=== PATIENT | female | born 1955 | race Caucasian/White ===

== ENCOUNTER 2019-04-21 19:16 | Inpatient (IN) | payer OTHER ==
[~2019-04-21 19:16] MED LIST: Calcium Chloride 1 GM/10 ML Abboject SYRINGE ONE; Dexamethasone 20 MG/5 ML VIAL ONE; Glycopyrrolate 0.2 MG/ML 5 ML SYRINGE ONE; Lidocaine 1% PF 5 ML VIAL ONE; Ondansetron PF 4 MG/2 ML Vial ONE; PHENYLEPHRINE-NS 100 MCG/ML 10 ML SYRINGE ONE; PROPOFOL 200 MG/20 ML VIAL ONE; Rocuronium Bromide 10 MG/ML (10ML VIAL) ONE; Succinylcholine Chloride 20 MG/ML 10 ml SYRINGE FS ONE; ePHEDrine/0.9% NaCl/PF SYRINGE 50 mg/10 ml ONE
[2019-04-21] MEDS ORDERED: Morphine 4 MG/ML VIAL ONE (19:57)
[2019-04-21] MEDS ORDERED: Midazolam HCl 2 mg/2 ml Vial ONE (20:04)
[2019-04-21] MEDS ORDERED: Fentanyl 100 MCG/2 ML VIAL ONE (20:04)
[2019-04-21] MEDS ORDERED: Lidocaine 1% w/Epinephrine 1:100K 20 ML VIAL ONE (20:04)
[2019-04-21] MEDS ORDERED: Bupivacaine 0.25% HCL 30 ML VIAL ONE (20:04)
[2019-04-21] MEDS ORDERED: cefOXitin Sodium/Dextrose,Iso 2 GM in Premix Bag 1 BAG IVPB SCH (20:30)
[2019-04-21] MEDS ORDERED: ceFOXitin 2 GM/50 ML Duplex BAG ONE (20:35)
[2019-04-21] MEDS ORDERED: Sodium Chloride 0.9% 20 ML ONE (20:42)
--- NOTE | 2019-04-21 20:55 | HP ---
HISTORY OF PRESENT ILLNESS: Ms. Brasher is a 63-year-old woman with sudden onset of abdominal pain around 10:30 or 11 o'clock this morning. The pain got much worse as time went by and she had multiple episodes of nonbloody nausea and vomiting, so she came to a freestanding emergency room. Workup there showed a slightly elevated white count and a slightly elevated lactate. A CT scan was done, which showed swelling of the mesentery and thickening of the large loop of small bowel with stranding in the mesentery concerning for volvulus or internal hernia. The patient states that her pain is continuing to worsen with time, nothing that has been done has relieved her pain. She has an NG tube in place, but has not had much output and has not had any relief of her pain after NG tube placement. She is not passing gas or having bowel movements. No fevers or chills. The patient states that the pain is across the center of her abdomen and very severe. She is writhing around in the bed, trying to get comfortable, but unable to get comfortable. PAST MEDICAL HISTORY: Diabetes and hyperlipidemia. PAST SURGICAL HISTORY: Hysterectomy. FAMILY HISTORY: Noncontributory. SOCIAL HISTORY: She is nonsmoker and drinks alcohol rarely and not to excess. Does not use any illicit drugs. ALLERGIES: SHE DOES NOT HAVE ANY KNOWN DRUG ALLERGIES. OUTPATIENT MEDICATIONS: Include; 1. Atorvastatin. 2. Jardiance. 3. Metformin. REVIEW OF SYSTEMS: Ten system review of systems is negative except per HPI. PHYSICAL EXAMINATION: VITAL SIGNS: The patient is in obvious discomfort. She is not flushed or toxic in appearance. She is alert and oriented, although distracted by pain. She is not jaundiced or icteric. HEENT: Unremarkable. NECK: Supple without lymphadenopathy or thyroid nodules. HEART: Regular in its rate and rhythm without murmurs, rubs, or gallops. LUNGS: Clear to auscultation bilaterally. ABDOMEN: Soft and nondistended. She is tender to palpation in the right lateral abdomen without rigidity, rebound, or guarding. She has a healed lower midline incision without palpable hernias. No palpable masses. EXTREMITIES: Warm and well perfused without edema. NEURO: No focal deficits. LABORATORY DATA: White count is elevated at 13, hematocrit is 48, platelets 316. Electrolytes are unremarkable. Glucose is slightly elevated at 210. LFTs and amylase are normal. Lactate is slightly high at 2.16. She has a base excess of 2. DIAGNOSTIC DATA: CT images are reviewed with our radiologist. He states that the bowel is thickened and hypoperfused concerning for ischemia. There is a lot of stranding in the mesentery. The bowel loop appears to be at mid jejunum, and the proximal and distal bowel appear well perfused and relatively decompressed. ASSESSMENT AND PLAN: Likely volvulus or internal hernia causing bowel ischemia. I recommended emergency surgery for detorsion or lysis of adhesions. Small bowel resection may be necessary depending on the viability of the bowel. Unfortunately, it took 2 hours for the patient to be transferred to our hospital, but I have posted her emergently for the operating room. 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 The patient also has an incidental finding of 3.5 right adnexal cyst. She is unsure how long this has been there. She has not had previous imaging. She has not had periods since her hysterectomy as a young woman, this is a nonemergent problem and her bowel issues need to be addressed first, but if the appearance of the cyst is concerning, I may do an intraoperative consult of the OB hospitalist. The patient is agreeable to proceed with oophorectomy if they feel this is indicated or cystectomy. Job ID: [id number]
[2019-04-21] MEDS ORDERED: Morphine 4 MG/ML VIAL SLOW IVP SCH (21:00)
[2019-04-21] MEDS ORDERED: Albumin 5% 250 ML ONE (21:21)
[2019-04-21] MEDS ORDERED: Promethazine HCl 25 MG/ML VIAL IM PRN (22:41)
[2019-04-21] MEDS ORDERED: Ondansetron HCl/PF 4 MG/2 ML Vial IVP PRN (22:41)
[2019-04-21] MEDS ORDERED: Promethazine HCl 25 MG/ML VIAL SLOW IVP PRN (22:41)
[2019-04-21] MEDS ORDERED: Morphine 2 MG/ML SYRINGE SLOW IVP PRN (22:44)
[2019-04-21] MEDS ORDERED: Morphine 4 MG/ML VIAL SLOW IVP PRN (22:44)
[2019-04-21] MEDS ORDERED: Dextrose 50% Abboject 50 ML SYRINGE SLOW IVP PRN (22:46)
[2019-04-21] MEDS ORDERED: HumaLOG 300 UNITS/3 ML VIAL SC PRN (22:46)
[2019-04-21] MEDS ORDERED: Dextrose 5% in Water 1,000 ML IV PRN (22:46)
[2019-04-21] MEDS ORDERED: Ketorolac Tromethamine 30 MG/ML VIAL IVP PRN (22:46)
[2019-04-21] MEDS ORDERED: Chloraseptic Spray 180 ml Bottle PO PRN (22:50)
[2019-04-21] MEDS ORDERED: Cepastat Lozenges 1 LOZ PO PRN (22:50)
[2019-04-21] MEDS ORDERED: cefOXitin Sodium 1 GM in Sodium Chloride 0.9% 100 ML IVPB SCH (23:59)
[2019-04-22 02:04] VITALS: BMI 20.8
[2019-04-22] MEDS: cefOXitin Sodium/Dextrose,Iso 1 GM in Premix Bag 50 BAG IVPB SCH ×3 (02:30→14:34)
[2019-04-22] MEDS: D5 1/2 NS w/20 mEq KCL 1,000 ML IV SCH ×3 (02:30→21:18)
[2019-04-22] MEDS ORDERED: Sodium Chloride 0.9% 500 ML IV SCH (05:45)
[2019-04-22 06:16] LABS: Anion Gap 12 mmol/L (10-20); BUN (Urea Nitrogen) 23 mg/dL (9.8-20.1); Calc. Creatinine Clearance 68 mL/min (70-130); Carbon Dioxide 25 mmol/L (23-31); Chloride 107 mmol/L (98-107); Estimated GFR-MDRD 71; Glucose 224 mg/dL (80-115); Potassium 4.6 mmol/L (3.5-5.1); Sodium 139 mmol/L (136-145)
[2019-04-22 06:34] LABS: Band 12 % (5-11); Hemoglobin 15.3 g/dL (12.0-16.0); Lymphocytes 5 % (21-51); MDiff Complete? YES; Mean Corpuscular HGB CONC 33.5 g/dL (32.0-36.0); Mean Corpuscular Hemoglobin 31.5 pg (27.0-31.0); Mean Corpuscular Volume 93.9 fL (78.0-98.0); Mean Platelet Volume 8.8 fL (7.4-10.4); Monocytes 4 % (0-10); Neutrophil 78 % (42-75); Platelet Count 278 thou/uL (130-400); RBC Distribution Width 12.6 % (11.5-14.5); Reactive Lymphocytes 1 % (0-10); Red Blood Cell (RBC) Count 4.86 mill/uL (4.20-5.40); White Blood Cell (WBC) Count 20.2 thou/uL (4.8-10.8)
[2019-04-22] MEDS: Pantoprazole 40 MG VIAL IVP SCH (08:56)
[2019-04-22] MEDS: Enoxaparin Sodium 40 MG/0.4 ML SYRINGE SC SCH (08:59)
[2019-04-22] MEDS ORDERED: Docusate 100 MG CAP PO SCH (09:00)
[2019-04-22] MEDS ORDERED: Sodium Chloride 0.9% 1,000 ML IV SCH (16:00)
--- NOTE | 2019-04-22 16:13 | PDOC.OP ---
Operative Note - Operative Note Operative Note: PROCEDURE: Laparoscopic hand-assisted lysis of adhesions and detorsion of ischemic small intestine SURGEON: Medardo Donovan M.D. ASST.: SPENCER Lees DATE: 04/21/2019 PREOPERATIVE DIAGNOSIS: Small bowel ischemia POSTOPERATIVE DIAGNOSIS: Small bowel ischemia due to tight adhesive band across the base of distal mesentery and partial torsion of distal small intestine HISTORY: Patient with sudden onset of severe abdominal pain nausea and vomiting around 11:00 this morning and going more severe. CT showed evidence of possible closed loop obstruction or torsion with hypoperfusion of the involved segment of small intestine and recommendation was made to proceed emergently to the operating room for exploration. FINDINGS: Tight adhesive band across the base of the distal mesentery with partial torsion of that segment of the intestine. Following lysis of the adhesion and detorsion of the intestine intestine improved in appearance and appeared viable. PROCEDURE IN DETAIL: After informed consent was obtained and appropriate bowel preparation and oral and IV antibiotics were administered the patient was taken to the operating room she was placed in supine position and general endotracheal anesthesia was administered. She was placed in lithotomy position and prepped and draped in standard sterile fashion. Local anesthesia was infused the skin and subcutaneous tissues at the periumbilical area and a 6 cm incision made. Dissection was carried down to the fascia which was incised under direct vision. The peritoneal cavity was entered and no adhesions noted. The patient was noted to have very dusky ischemic appearing small intestine. A wound protector was placed and the ischemic intestine externalized. A tight band across the base of the mesentery was identified and divided. The mesentery was noted to be twisted, and detorsion was carried out, following which the bowel began to improve in appearance. The ischemic portion went almost to the ileocecal valve and extended to the distal jejunum. The proximal 329 m of bowel from the ligament of Treitz to the distal jejunum was normal. The bowel was returned to the abdominal cavity. A GelPort were placed and carbon dioxide gas insufflated to an intra-abdominal pressure 15 which the patient tolerated well. A 5 mm port was placed in the right lateral abdomen under direct vision and the abdominal cavity carefully examined. The gallbladder was distended but soft. The colon was filled with hard stool all the way back to the hepatic flexure consistent with chronic severe constipation, or possible pre-existing partial obstruction. Another adhesive band was found in the pelvis between the right adnexa and the sigmoid, creating potential for another internal hernia. This was divided with cautery. The right ovary was noted to have a cyst. A photo was taken. Due to the distended nature of the bowel it was felt that ovarian cystectomy or oophorectomy would be difficult so the decision was made to defer this problem until a later date. The bowel was again run and excellent pulses felt all the way to the edge of the mesentery. The bowel had continued to improve in appearance and appeared to be entirely viable although there were hemorrhagic changes in the mesentery and the bowel wall. There did not appear to be any areas of full-thickness ischemia or necrosis. The 5 mm epigastric trocar was removed and hemostasis verified. The GelPort and wound protector were removed and Seprafilm placed anterior to the omentum. The fascia was closed with a running PDS suture. The wound was copiously irrigated and the skin was closed with running subcuticular Monocryl sutures. Dermabond dressings were placed and the patient was extubated and taken to recovery in good condition. Estimated blood loss was minimal. There were no complications and no specimens.
[2019-04-22] MEDS: Nicotine 14 MG PATCH TD SCH (16:31)
--- NOTE | 2019-04-22 20:56 | PDOC.GSPN ---
Surgery Progress Note: Subj - Subjective Narrative: Patient feels much better today. Her pain is controlled and she is not nauseated but has not yet passed flatus. NG output is fairly clear however. Her incisions look good and her abdomen is soft and nondistended and minimally tender in the norma-incisional area. Minimal bowel sounds however. White count is up but other labs are stable. Assessment/plan: Doing well status post lysis of adhesions and detorsion of ischemic small intestine. Postoperative ileus as anticipated. She has been a little tachycardic and I suspect she is third spacing. I have given her some IV fluids. She may be experiencing nicotine withdrawal as well so I have ordered NicoDerm patch. Surgery Progress Note: Obj - Vital signs Vital signs: Vital Signs - Most Recent Temp Pulse Resp BP Pulse Ox 98.7 F 83 18 101/65 94 L 04/22/19 20:23 04/22/19 20:23 04/22/19 20:23 04/22/19 20:23 04/22/19 20:23 Surgery Progress Note: Results - Labs Result Diagrams: 04/22/19 05:20 04/22/19 05:20 Lab results: Laboratory Results - last 24 hr 04/22/19 04/22/19 12:00 18:34 POC Glucose 181 H 127 H
[2019-04-22] MEDS ORDERED: FLU VACC QS2019-20(6MOS UP)/PF 60 MCG/0.5 ML SYRINGE IM ONE (21:00)
[2019-04-22] MEDS: Docusate Sodium 100 MG/10 ML UDCUP PO SCH (21:14)
[2019-04-23 05:49] LABS: #Basophils 0.1 thou/uL (0.0-0.2); #Lymphocytes 3.1 thou/uL (1.20-3.40); #Monocytes 1.3 thou/uL (0.11-0.59); #Neutrophils 16.3 thou/uL (1.40-6.50); %Basophils 0.4 % (0.0-1.0); %Eosinophils 0.1 % (0.0-10.0); %Lymphocytes 14.8 % (21.0-51.0); %Neutrophils 78.6 % (42.0-75.0); Hemoglobin 12.7 g/dL (12.0-16.0); Mean Corpuscular HGB CONC 31.9 g/dL (32.0-36.0); Mean Corpuscular Hemoglobin 30.8 pg (27.0-31.0); Mean Corpuscular Volume 96.5 fL (78.0-98.0); Mean Platelet Volume 8.5 fL (7.4-10.4); Platelet Count 236 thou/uL (130-400); RBC Distribution Width 12.5 % (11.5-14.5); Red Blood Cell (RBC) Count 4.12 mill/uL (4.20-5.40); White Blood Cell (WBC) Count 20.7 thou/uL (4.8-10.8)
[2019-04-23 06:22] LABS: ALT (SGPT) 12 U/L (8-55); AST (SGOT) 16 U/L (5-34); Albumin 3.2 g/dL (3.4-4.8); Alkaline Phosphatase 60 U/L (40-110); Anion Gap 6 mmol/L (10-20); BUN (Urea Nitrogen) 19 mg/dL (9.8-20.1); Bilirubin, Total 0.5 mg/dL (0.2-1.2); Calc. Creatinine Clearance 84 mL/min (70-130); Calcium 8.4 mg/dL (7.8-10.44); Carbon Dioxide 29 mmol/L (23-31); Chloride 110 mmol/L (98-107); Estimated GFR-MDRD Greater than 90; Globulin 2.1 g/dL (2.4-3.5); Glucose 151 mg/dL (80-115); Potassium 3.7 mmol/L (3.5-5.1); Protein, Total 5.3 g/dL (6.0-8.3); Sodium 141 mmol/L (136-145)
[2019-04-23] MEDS: Docusate Sodium 100 MG/10 ML UDCUP PO SCH ×2 (09:31→21:08)
[2019-04-23] MEDS: Enoxaparin Sodium 40 MG/0.4 ML SYRINGE SC SCH ×2 (09:31→09:37)
[2019-04-23] MEDS: Pantoprazole 40 MG VIAL IVP SCH ×2 (09:31→09:37)
[2019-04-23] MEDS: D5 1/2 NS w/20 mEq KCL 1,000 ML IV SCH ×3 (09:32→23:56)
[2019-04-23] MEDS: Nicotine 14 MG PATCH TD SCH (17:46)
[2019-04-24] MEDS: D5 1/2 NS w/20 mEq KCL 1,000 ML IV SCH (08:43)
[2019-04-24] MEDS: Docusate 100 MG CAP PO SCH ×2 (08:43→20:47)
[2019-04-24] MEDS: Polyethylene Glycol 3350 17 GM Packet PO SCH (08:46)
[2019-04-24] MEDS: Enoxaparin Sodium 40 MG/0.4 ML SYRINGE SC SCH (08:46)
--- NOTE | 2019-04-24 15:10 | PDOC.GSPN ---
Surgery Progress Note: Subj - Subjective Narrative: Patient is feeling good today. She had 2 bowel movements which were very hard. No nausea or vomiting. Incisional pain has improved. She is tolerating full liquids. Surgery Progress Note: Obj - Vital signs Vital signs: Vital Signs - Most Recent Temp Pulse Resp BP Pulse Ox 98.7 F 102 H 20 126/71 98 04/24/19 12:45 04/24/19 13:18 04/24/19 13:18 04/24/19 12:45 04/24/19 13:18 - Physical Exam General: no distress Cardiovascular: regular rate and rhythm Abdomen: soft, nondistended (Patient has a grape-sized hematoma near the umbilicus at her midline incision and some bruising and edema surrounding this. The bruising was present yesterday but the hematoma was not. The patient states that she did have a lot of coughing.), positive bowel sounds Surgery Progress Note: Results - Labs Result Diagrams: 04/23/19 05:23 04/23/19 05:23 Lab results: Laboratory Results - last 24 hr 04/24/19 06:40 POC Glucose 129 H Surgery Progress Note: A/P - Problem (1) Ischemic bowel syndrome Current Visit: Yes Code(s): K55.9 - VASCULAR DISORDER OF INTESTINE, UNSPECIFIED Status: Acute Assessment and Plan: Patient is recovering well from her ischemic bowel. This was due to compression of the mesentery by a tight adhesive band and volvulus, both of which were corrected surgically. No evidence of full-thickness ischemia. Her bowel function has returned and we are advancing her diet. (2) Bowel obstruction Current Visit: Yes Code(s): K56.609 - UNSP INTESTNL OBST, UNSP TO PARTIAL VERSUS COMPLETE OBST Status: Acute Assessment and Plan: No evidence of ongoing bowel obstruction. I suspect that before her acute episode the patient likely had some chronic partial obstruction given the large amount of hard stool in the colon. I recommended enemas to try to soften the stool make it easier to pass but the patient would like to hold off on this and try stool softeners and laxatives first. I have ordered these and we will see how she tolerates advancement of her diet. (3) Hematoma Current Visit: Yes Code(s): T14.8XXA - OTHER INJURY OF UNSPECIFIED BODY REGION , INITIAL ENCOUNTER Status: Acute Assessment and Plan: Patient has developed a small hematoma at her hand port site. This is likely due to coughing postoperatively. She states that she was having more pain at her incision yesterday, and that this has improved today. I explained the small hematomas will usually resorb on their own, but if they become infected then would need to open and drain this. We are just going to keep an eye on it. If she develops redness swelling or tenderness at the site then drainage would be recommended.
[2019-04-24] MEDS: Nicotine 14 MG PATCH TD SCH (15:16)
[2019-04-25] MEDS: Polyethylene Glycol 3350 17 GM Packet PO SCH (08:21)
[2019-04-25] MEDS: Docusate 100 MG CAP PO SCH (08:21)
[2019-04-25] MEDS: Pantoprazole 40 MG VIAL IVP SCH (08:21)
[2019-04-25] MEDS: Enoxaparin Sodium 40 MG/0.4 ML SYRINGE SC SCH (08:21)
[2019-04-25] MEDS ORDERED: traMADol HCl 50 MG TAB PO PRN ×2 (08:30)
[2019-04-25 11:36] VITALS: BP 94/59; TEMP 98.2
--- NOTE | 2019-04-27 03:06 | PQF ---
JOSE DAVIS KIMIYE MD [id number] [facility] [id number] CLINICAL DOCUMENTATION CLARIFICATION FORM: POST DISCHARGE Addendum to original discharge summary date: ____ Late entry note date: __ DATE:04/27/19 ATTN:Medardo Walker Please exercise your independent, professional judgment in responding to the clarification form. Clinical indicators are provided on the bottom of this form for your review Can you please further clarify the specificity of Volvulus based on the clinical indicators below? Please check appropriate box(s): [ ] Duodenal volvulus [ ] volvulus due to ischemic stricture [ ] volvulus unspecified [ ] Other diagnosis please specify [ ] Unable to determine In addition, please specify: Present on Admission (POA): [ ] Yes [ ] No [ ] Unable to determine For continuity of documentation, please document condition throughout progress notes and discharge summary. Thank You. CLINICAL INDICATORS - SIGNS / SYMPTOMS / LABS H and P pg.1- CT scan was done, which showed swelling of the mesentery and thickening of the large loop sos small bowel with stranding in the mesentry concerning for volvulus or internal hernia H and P pg.1- likely volvulus or internal hernia causing bowel ischemia PN 04/24 p.2- "this was due to compression of the mesentery by a tight adhesive band and volvulus" OP note p.1- "partial torsion of distal small intestine" RISK FACTORS Diabetes- H and P pg.1 Hyperlipidemia- H and P pg.1 Small bowel ischemia- OP report pg.1 TREATMENTS: Laparoscopic hand assisted lysis of adhesion and detorsion of ischemic small intestine- OP report pg.1 IV fluids- MAR (This form is maintained as a part of the permanent medical record) 2014 [employer]. All Rights Reserved [employer] [not provided] JESSIED
--- NOTE | 2019-05-03 17:05 | EKG ---
Test Reason : Blood Pressure : / mmHG Vent. Rate : 122 BPM Atrial Rate : 122 BPM P-R Int : 136 ms QRS Dur : 078 ms QT Int : 328 ms P-R-T Axes : 069 036 077 degrees QTc Int : 467 ms Sinus tachycardia Possible Left atrial enlargement Abnormal ECG No previous ECGs available Confirmed by LISSETTE DIOP M.D. ([id number]) on 05/03/2019 5:05:24 PM Referred By: SAMARA Confirmed By:LISSETTE DIOP M.D.
== END 2019-04-25 13:19 | disposition home or self-care (01) | DRG 330 ==
LOC: SJJU 19:16
PROVIDERS: ADMIT Surgery; ATTEND Surgery
PROC: 0DS80ZZ Reposition Small Intestine, Open Approach (ICD-10-PCS; principal; 2019-04-21)
PROC: 0DN80ZZ Release Small Intestine, Open Approach (ICD-10-PCS; 2019-04-21)
DX: K55.9 Vascular disorder of intestine, unspecified (principal); K56.50 Intestinal adhesions [bands], unspecified as to partial versus complete obstruction; K56.7 Ileus, unspecified; E11.9 Type 2 diabetes mellitus without complications; E78.5 Hyperlipidemia, unspecified; E27.8 Other specified disorders of adrenal gland; F17.210 Nicotine dependence, cigarettes, uncomplicated; J43.9 Emphysema, unspecified; S30.1XXA Contusion of abdominal wall, initial encounter; X58.XXXA Exposure to other specified factors, initial encounter; Z90.710 Acquired absence of both cervix and uterus; Z79.84 Long term (current) use of oral hypoglycemic drugs; Z79.899 Other long term (current) drug therapy
CPT/HCPCS: 36415; 36416; 80048; 80053; 85025; 93005; 93010; 94640; C9113; J0694; J1100; J1650; J1885; J2001; J2250; J2270; J2405; J2704; J3010; J7620; P9045; S0020